=== PATIENT | female | born 1950 | race Caucasian/White ===

== ENCOUNTER 2017-03-15 06:33 | Day surgery (SDC) | payer OTHER ==
[2017-03-12 16:30] LABS: BASOPHILS 0.3 %; BASOPHILS ABSOLUTE 0.02 10/3/uL (0.0-0.16); EOSINOPHILS 1.7 %; EOSINOPHILS ABSOLUTE 0.13 10/3/uL (0.0-0.53); HEMATOCRIT 39.4 % (36.0-48.0); HEMOGLOBIN 13.8 g/dL (12.0-16.0); IMMATURE GRANULOCYTES 0.1 %; IMMATURE GRANULOCYTES ABSOLUTE 0.01 10/3/uL (0.0-0.11); LYMPHOCYTES 37.8 %; LYMPHOCYTES ABSOLUTE 2.85 10/3/uL (0.67-4.30); MEAN CORPUSCULAR VOLUME 88.5 fL (80-100); MEAN PLATELET VOLUME 11.9 fL (9.2-13.0); MONOCYTES 6.9 %; MONOCYTES ABSOLUTE 0.52 10/3/uL (0.21-1.20); NEUTROPHILS 53.2 %; PLATELET COUNT 251 10/3/uL (150-400); RED CELL COUNT 4.45 10/6/uL (4.0-5.6); WHITE BLOOD CELLS 7.5 10/3/uL (4.5-10.5)
[2017-03-12 16:31] LABS: MANUAL DIFF NO %
[2017-03-12 17:39] LABS: BUN (BLOOD UREA NITROGEN) 15 MG/DL (6-23); CALCIUM, SERUM 9.4 MG/DL (8.5-10.4); CHLORIDE, SERUM 106 MMOL/L (96-112); CO2 (CARBON DIOXIDE) 24 MMOL/L (24-34); GFR AFRICAN AMERICAN 109 ML/MIN (>=60); GFR NON AFRICAN AMERICAN 94 ML/MIN (>=60); GLUCOSE, SERUM 285 MG/DL (60-99); POTASSIUM, SERUM 4.3 MMOL/L (3.5-5.3); SODIUM, SERUM 140 MMOL/L (135-148)
--- NOTE | ~2017-03-15 | OP ---
Record Of Operation [facility] [address] [place]. [address] NAME: YURIY ZEPEDA : 50 STATUS : [facility]#: [id number] AGE: 67 ADM/REG DATE : 03/15/17 MR#: [id number] REPORT SERV DATE: 03/17/17 DICTATED BY: ADY PEREZ DATE: 03/17/17 REPORT STATUS : Draft TRANSCRIBED BY: SAMY DATE: 03/17/17 DATE OF PROCEDURE: 03/15/2017 PREOPERATIVE DIAGNOSIS: Postmenopausal bleeding. POSTOPERATIVE DIAGNOSIS: Submucosal fibroid. PROCEDURE: Dilation and curettage with hysteroscopy under ultrasound guidance, CPT code 26434. SURGEON: Ady Perez M.D. ESTIMATED BLOOD LOSS: 10 mL. FLUIDS IN: 800 mL of crystalloid. COMPLICATIONS: None. FINDINGS AND INDICATIONS: This is a 67-year-old female, who presents with postmenopausal bleeding. An endometrial biopsy was performed in the office, however, it was inadequate. She is therefore being taken to the operating room for D and C with hysteroscopy. The procedure was performed with ultrasound guidance. Intraoperatively, she was found to have a submucosal fibroid impinging on the endometrial cavity. Samples from both the endocervix and endometrium were obtained and sent to Pathology and labeled appropriately. PROCEDURE IN DETAIL: The patient was taken to the operating room. She was placed in supine position for administration of general anesthesia. A catheter was placed in the patient's bladder, and the patient's bladder was filled with approximately 300 mL of normal saline. Using ultrasound guidance, the cervix was dilated using Jimmie dilators. The hysteroscope was then placed with the above findings noted. A fractional D and C was then performed with sharp curettings. Specimens were obtained for both the endocervix and endometrium. At the completion of the procedure, the instruments were removed. Excellent hemostasis was noted at the cervix, and the anesthesia was reversed. The patient was taken to the recovery room in stable condition. CARLOS/SAMY Ady Perez M.D. / [id number] CC: Ady Perez M.D. Record Of Operation [address] [address] NAME: YURIY ZEPEDA : 50 STATUS : [facility] PAT#: [id number] AGE: 67 ADM/REG DATE : 03/15/17 MR#: [id number] REPORT SERV DATE: 03/17/17 DICTATED BY: ADY PEREZ DATE: 03/17/17 REPORT STATUS : Draft TRANSCRIBED BY: HARMEETL DATE: 03/17/17 [place]
[~2017-03-15 06:33] MED LIST: AMARYL1 MG PO; GLUCOPHAGE1000 MG PO; INVOKANA100 MG PO; MIRAPEX5 PO
== END 2017-03-15 17:13 | disposition home or self-care (01) ==
LOC: SDC 06:33
PROVIDERS: Obstetrics & Gynecology Gynecologic Oncology
PROC: 0UDB8ZX Extraction of Endometrium, Via Natural or Artificial Opening Endoscopic, Diagnostic (ICD-10-PCS; principal; 2017-03-15 07:45)
DX: N95.0 Postmenopausal bleeding (principal); E11.9 Type 2 diabetes mellitus without complications; G47.33 Obstructive sleep apnea (adult) (pediatric); Z99.81 Dependence on supplemental oxygen; G25.81 Restless legs syndrome; F32.9 Major depressive disorder, single episode, unspecified; Z88.8 Allergy status to other drugs, medicaments and biological substances
CPT/HCPCS: 76857; 76998; 80048; 82962; 85025; 88305; 93005; J0694; J1885; J2250; J2405; J3010